=== PATIENT | male | born 1980 | race Caucasian/White ===

== ENCOUNTER 2017-12-15 09:09 | Emergency (ER) | payer SELFPAY ==
[~2017-12-15] VITALS: Ht 172.7 cm; Wt 85.7 kg
[2017-12-15 11:41] VITALS: BP 121/84
== END 2017-12-15 11:41 | disposition home or self-care (01) ==
LOC: ED 09:09
DX: S60.211A Contusion of right wrist, initial encounter (principal); F17.200 Nicotine dependence, unspecified, uncomplicated; W20.8XXA Other cause of strike by thrown, projected or falling object, initial encounter; Y93.89 Activity, other specified; Y92.89 Other specified places as the place of occurrence of the external cause; Y99.8 Other external cause status
CPT/HCPCS: 99406